=== PATIENT | male | born 1940 | race Caucasian/White ===

== ENCOUNTER 2016-12-13 12:15 | Emergency (ER) | payer MEDICARE, OTHER ==
[2016-12-13 13:49] LABS: BASOPHILS 0.6 % (0-2); HEMOGLOBIN 16.1 g/dL (13.5-17.5); IMMATURE GRANULOCYTES 0.3 % (0-5); LYMPHOCYTES 16.9 % (15-50); MCV 97.3 fL (80.0-100.0); MEAN PLATELET VOLUME 10.4 fL (7.4-10.4); MONOCYTES 8.4 % (2-11); NEUTROPHILS 69.8 % (40-80); PLATELET COUNT 139 10x3/uL (130-400); RBC 4.73 10x6/uL (4.20-6.10); RDW 11.6 % (11.5-14.5); WBC 6.6 10x3/uL (4.8-10.8)
[2016-12-13 14:02] LABS: ALBUMIN 3.7 g/dL (3.4-5.0); ALKALINE PHOSPHATASE 70 U/L (46-116); ALT (SGPT) 36 U/L (10-68); CALC OSMOLALITY 281 mosm/kg (275-300); CALCIUM 8.7 mg/dL (8.5-10.1); CARBON DIOXIDE 27.9 mmol/L (21.0-32.0); CHLORIDE - SERUM 107 mmol/L (98-107); CREATININE - SERUM 1.1 mg/dL (0.6-1.3); GLUCOSE 112 mg/dL (74-106); POTASSIUM - SERUM 4.3 mmol/L (3.5-5.1); PROTEIN - SERUM 6.9 g/dL (6.4-8.2); SODIUM 141 mmol/L (136-145); UREA NITROGEN 13 mg/dL (7-18); eGFR NON AFRICAN AMERICAN 69 mL/min (90-120)
[2016-12-13 14:22] LABS: CREATINE KINASE 252 UL (21-232)
[2016-12-13 14:24] LABS: TROPONIN-I < 0.017 ng/mL (0.000-0.060)
[2016-12-13 14:25] LABS: CKMB 3.9 U/L (0.0-3.6)
[2016-12-13 15:25] LABS: PRO BNP 600 pg/mL (0-450)
[2016-12-13 15:26] LABS: MAGNESIUM - SERUM 2.1 mg/dL (1.8-2.4)
== END 2016-12-13 17:07 | disposition home or self-care (01) ==
LOC: D.ER 12:15
PROVIDERS: Emergency Medicine
DX: R42 Dizziness and giddiness (principal); R53.1 Weakness; Z95.0 Presence of cardiac pacemaker; E78.5 Hyperlipidemia, unspecified; I10 Essential (primary) hypertension

== ENCOUNTER → 2016-12-18 10:54 | Outpatient (CLI) | payer MEDICARE, OTHER | END | disposition home or self-care (01) | LOC: D.CT 10:54 | DX: R26.89 Other abnormalities of gait and mobility (principal) ==